=== PATIENT | male | born 1995 | race Caucasian/White ===

== ENCOUNTER 2020-01-27 15:22 | Outpatient (CLI) | payer MEDICAID ==
--- NOTE | 2020-01-27 15:24 | XRAY Report ---
PROCEDURE: Knee 3 View LT INDICATIONS: Left knee joint pain TECHNIQUE: 3 views of the left knee(s) were acquired. COMPARISON: None. FINDINGS: Bones: No fractures or dislocations. No suspicious bony lesions. Soft tissues: No joint effusion. No suspicious soft tissue calcifications. IMPRESSION: No acute finding or other explanation for pain. Reviewed by: Compa Jang MD on 01/27/2020 3:23 PM PST Approved by: Compa Jang MD on 01/27/2020 3:23 PM PST Station ID: [id number]
== END 2020-01-27 23:59 | disposition home or self-care (01) ==
LOC: DI.N 15:22
PROVIDERS: ATTEND Physician Assistant
DX: M25.562 Pain in left knee (principal)

== ENCOUNTER 2020-06-14 19:36 | Emergency (ER) | payer MEDICAID ==
--- NOTE | 2020-06-14 20:49 | ED Physician Documentation ---
PD HPI UPPER EXT INJURY - Stated complaint Stated Complaint: RT HAND LAC - Chief complaint Chief Complaint: Laceration - History obtained from History obtained from: Patient - History of Present Illness Location: Right, Finger (index finger) Where injury occurred: Home Timing - duration: Hours (1) Pain level max: 5 Pain level now: 3 Associated symptoms: No: Weakness, Numbness, Tingling, Swelling Contributing factors: No: Anticoagulated Recently seen: Not recently seen - Additonal information Additional information: 25-year-old male presents to the emergency department for laceration to the right index finger. This was at home today. Occurred about an hour prior to arrival. He states he was using a shearer screen measurer and trimmer when it cut through the glove and cut his index finger. Tetanus is up-to-date. Patient is right-handed. Nothing makes it better or worse Review of Systems Constitutional: denies: Fever, Chills Neurologic: denies: Focal weakness PD PAST MEDICAL HISTORY - Past Medical History Past Medical History: Yes Cardiovascular: None Respiratory: None Neuro: None Endocrine/Autoimmune: None GI: None : None HEENT: None Psych: Anxiety Musculoskeletal: None Derm: None - Past Surgical History Past Surgical History: No - Present Medications Home Medications: Ambulatory Orders Medication Instructions Recorded Confirmed Escitalopram [Lexapro] 10 mg PO DAILY 06/14/20 06/14/20 - Allergies Allergies/Adverse Reactions: Allergies Allergy/AdvReac Type Severity Reaction Status Date / Time No Known Drug Allergies Allergy Verified 06/14/20 19:38 - Social History Does the pt smoke?: No Smoking Status: Never smoker Does the pt drink ETOH?: No Does the pt have substance abuse?: No - Immunizations Immunizations are current?: Yes - POLST Patient has POLST: No PD ED PE NORMAL - Vitals Vital signs reviewed: Yes - General General: Alert and oriented X 3, No acute distress - HEENT HEENT: Moist mucous membranes - Derm Derm: Warm and dry - Extremities Extremities: Other (R index finger - small laceration to the palmar aspect of the middle phalanx. NVI. no tendon injury, tested vs resistance. ) - Neuro Neuro: Alert and oriented X 3 - Psych Psych: Normal mood, Normal affect Results - Vitals Vitals: Oxygen O2 Source Room air Procedures - Laceration (location) R index finger Wound type: Linear, Into subcut fat Neurovascular status: Sensory intact, Motor intact, Vascular intact Tendon involvement: Tendon intact, Tendon Injury Wound preparation: Irrigated copiously NS, Wound explored, To the base Skin layer closure: Dermabond, Other (T ring closure) Other: Patient tolerated well, No complications, Neurovascular intact, Dressing applied, Tetanus UTD PD MEDICAL DECISION MAKING - ED course Complexity details: considered differential, d/w patient ED course: Laceration repaired with the T ring closure system. Tolerated well. Tetanus is up-to-date. Warnings of infection and instructions on wound care given at [facility]. Also counseled on how to minimize scarring. Patient counseled regarding signs and symptoms for which I believe and urgent re-evaluation would be necessary. Patient with good understanding of and agreement to plan and is comfortable going home at this time This document was made in part using voice recognition software. While efforts are made to proofread this document, sound alike and grammatical errors may occur. Departure - Departure Disposition: 01 Home, Self Care Clinical Impression: Finger laceration Qualifiers: Encounter type: initial encounter Finger: index finger Damage to nail status: without damage Foreign body presence: without foreign body Laterality: right Qualified Code(s): S61.210A - Laceration without foreign body of right index finger without damage to nail, initial encounter Condition: Good Instructions: ED Laceration Hand Follow-Up: your,doctor as needed [Other] Comments: The T ring system will fall off on its own in a week or 2. Be careful with the hand until then. Return if you notice redness, swelling or drainage from the wound. Do not apply ointment as this may dissolve the glue that is holding the system on. Discharge Date/Time: 06/14/20 20:56
[2020-06-14 20:57] VITALS: BP 130/70
== END 2020-06-14 20:56 | disposition home or self-care (01) ==
LOC: ED 19:36
DX: S61.210A Laceration without foreign body of right index finger without damage to nail, initial encounter (principal); W27.1XXA Contact with garden tool, initial encounter; Y93.H2 Activity, gardening and landscaping; Y92.009 Unspecified place in unspecified non-institutional (private) residence as the place of occurrence of the external cause
CPT/HCPCS: 12001; 99281; 99282

== ENCOUNTER 2021-08-15 20:06 | Outpatient (CLI) | payer OTHER, MEDICAID ==
--- NOTE | 2021-08-16 12:36 | Ultrasound Report ---
PROCEDURE: Abdomen Limited INDICATIONS: UMBILICAL HERNIA TECHNIQUE: Real-time focused scanning was performed of the abdomen, with image documentation. COMPARISON: None FINDINGS: Fat containing umbilical hernia is present. It is reducible. Neck measures 3 m. IMPRESSION: Reducible, fat containing umbilical hernia. Reviewed by: Alicia Cruz MD on 08/16/2021 12:35 PM PDT Approved by: Alicia Cruz MD on 08/16/2021 12:35 PM PDT Station ID: [id number]
== END 2021-08-15 20:07 | disposition home or self-care (01) ==
LOC: DI 20:06
PROVIDERS: ATTEND Registered Nurse
DX: K42.9 Umbilical hernia without obstruction or gangrene (principal); M79.18 Myalgia, other site